=== PATIENT | male | born 1995 | race Caucasian/White ===

== ENCOUNTER 2017-11-07 13:06 | Emergency (ER) | payer OTHER ==
--- NOTE | 2017-11-07 14:06 | EDM.PDOC ---
ED HPI GENERAL MEDICAL PROBLEM - General Chief Complaint: Chemical Exposure Stated Complaint: H2S GAS EXPOSURE/INHALATION Time Seen by Provider: 11/07/17 14:00 Source of Information: Reports: Patient History Limitations: Reports: No Limitations - History of Present Illness INITIAL COMMENTS - FREE TEXT/NARRATIVE: 22-year-old male comes to the ER after being exposed to H2S at his work, [employer]. According to his coworker who brought him in today, the HS2 meter at work read 34 PPM with the lethal limit being 100 PPM at the time of alarm. Patient states the alarm went off at 10 AM and his symptoms began 30-40 minutes after. Symptoms included feeling dizzy, headache, and sharp pain in the arms and fingertips which he rated an 8 out of 10. Currently most of the symptoms have subsided except he still complains of a mild headache, which he says feels like pressure behind the eyes and pain in the temples. He currently has no other complaints. He denies any fever/chills, shortness of breath, difficulty breathing, changes in vision, or changes in cognition. This is the first time he has ever experienced this. He is alert and oriented 3. Headache Pain Score (Numeric/FACES): 8 - Related Data Allergies Allergy/AdvReac Type Severity Reaction Status Date / Time No Known Allergies Allergy Verified 11/07/17 13:28 Home Meds: Home Meds . [No Known Home Meds] 11/07/17 [History] Past Medical History - Past Health History Medical/Surgical History: Denies Medical/Surgical History Social & Family History - Family History Family Medical History: Noncontributory - Tobacco Use Smoking Status *Q: Current Every Day Smoker Years of Tobacco use: 7 Packs/Tins Daily: 1 - Caffeine Use Caffeine Use: Reports: Coffee - Recreational Drug Use Recreational Drug Use: Yes Drug Use in Last 12 Months: No Recreational Drug Type: Reports: Marijuana/Hashish ED ROS GENERAL - Review of Systems Review Of Systems: See Below Constitutional: Reports: No Symptoms. Denies: Fever, Chills HEENT: Reports: No Symptoms. Denies: Eye Discharge, Eye Pain, Vision Change Respiratory: Reports: No Symptoms. Denies: Shortness of Breath, Wheezing, Pleuritic Chest Pain, Cough, Sputum, Hemoptysis Cardiovascular: Reports: No Symptoms. Denies: Chest Pain Endocrine: Reports: No Symptoms GI/Abdominal: Reports: No Symptoms. Denies: Abdominal Pain, Distension, Nausea , Vomiting : Reports: No Symptoms Musculoskeletal: Reports: No Symptoms. Denies: Arm Pain Skin: Reports: No Symptoms Neurological: Reports: Headache (describes as pressure behind the eyes and pain in temples). Denies: Confusion, Dizziness, Numbness, Syncope, Tingling, Trouble Speaking, Difficulty Walking, Weakness, Change in Speech Psychiatric: Reports: No Symptoms ED EXAM, BURN/SMOKE INHALATION - Physical Exam Exam: See Below Exam Limited By: No Limitations General Appearance: Alert, WD/WN, No Apparent Distress Eye Exam: Bilateral Eye: Normal Inspection, PERRL Ears (Abbreviated): Normal External Exam Mouth/Throat: No Symptoms Reported Head: No Symptoms, Atraumatic, Normocephalic Neck: No Symptoms Respiratory: No Respiratory Distress, Lungs Clear, Normal Breath Sounds, No Accessory Muscle Use, Chest Non-Tender. No: Crackles, Rhonchi, Wheezing, Tachypnea Cardiovascular: Normal Peripheral Pulses, Regular Rate, Rhythm, No Murmur GI/Abdominal: Normal Bowel Sounds, Soft, Non-Tender Back Exam: Normal Inspection Extremities: Normal Inspection Neurological: Alert, Oriented, Normal Cognition, Normal Gait, Normal Reflexes, No Motor/Sensory Deficits Psychiatric: Normal Affect, Normal Mood Skin Exam: Warm, Dry, Intact, Normal Color. No: Cyanosis Course - Vital Signs Last Recorded V/S: Last Vital Signs Temp 36.2 C 11/07/17 13:29 Pulse 75 11/07/17 13:29 Resp 18 11/07/17 13:29 BP 140/80 11/07/17 13:29 Pulse Ox 99 11/07/17 13:29 - Orders/Labs/Meds Labs: Laboratory Tests 11/07/17 11/07/17 Range/Units 14:40 14:40 WBC 7.07 (4.23-9.07) K/mm3 RBC 4.91 (4.63-6.08) M/mm3 Hgb 16.0 (13.7-17.5) gm/L Hct 43.5 (40.1-51.0) % MCV 88.6 (79.0-92.2) fl MCH 32.6 H (25.7-32.2) pg MCHC 36.8 H (32.2-35.5) g/dl RDW Std Deviation 39.3 (35.1-43.9) fL Plt Count 268 (163-337) K/mm3 MPV 8.3 L (9.4-12.3) fl Neut % (Auto) 49.3 (34.0-67.9) % Lymph % (Auto) 38.6 (21.8-53.1) % Eaton % (Auto) 10.7 (5.3-12.2) % Eos % (Auto) 1.0 (0.8-7.0) Baso % (Auto) 0.4 (0.1-1.2) % Neut # (Auto) 3.48 (1.78-5.38) K/mm3 Lymph # (Auto) 2.73 (1.32-3.57) K/mm3 Eaton # (Auto) 0.76 (0.30-0.82) K/mm3 Eos # (Auto) 0.07 (0.04-0.54) K/mm3 Baso # (Auto) 0.03 (0.01-0.08) K/mm3 Sodium 141 (136-145) mEq/L Potassium 3.8 (3.5-5.1) mEq/L Chloride 102 (98-107) mEq/L Carbon Dioxide 28 (21-32) mEq/L Anion Gap 14.8 (5-15) BUN 14 (7-18) mg/dL Creatinine 0.9 (0.7-1.3) mg/dL Est Cr Clr Drug Dosing 137.12 mL/min Estimated GFR (MDRD) > 60 (>60) mL/min BUN/Creatinine Ratio 15.6 (14-18) Glucose 82 (74-106) mg/dL Calcium 9.0 (8.5-10.1) mg/dL Total Bilirubin 0.5 (0.2-1.0) mg/dL AST 26 (15-37) U/L ALT 32 (16-63) U/L Alkaline Phosphatase 63 (46-116) U/L Lactate Dehydrogenase 161 (85-227) U/L Total Protein 7.2 (6.4-8.2) g/dl Albumin 4.8 (3.4-5.0) g/dl Globulin 2.4 gm/dL Albumin/Globulin Ratio 2.0 (1-2) Meds: Medications Discontinued Medications Generic Name Dose Route Start Last Admin Trade Name Marcia PRN Reason Stop Dose Admin Ketorolac Tromethamine 60 mg 11/07/17 14:42 11/07/17 14:57 Toradol IM 11/07/17 14:43 60 mg ONETIME ONE Administration - Radiology Interpretation Free Text/Narrative:: Chest: Two views of the chest were obtained. Comparison: No prior chest x-ray. Heart size and mediastinum are normal. Lungs are clear. Bony structures are unremarkable. Impression: 1. Nothing acute is seen on two-view chest x-ray. Diagnostic code #1 - Re-Assessments/Exams Free Text/Narrative Re-Assessment/Exam: Poison control was called, spoke with Shahid who recommended symptomatic support as well as observation for about 1-2 hours as well as getting labs for basic metabolic panel and a lactate. Patient sent for chest x-ray to rule out pulmonary edema which is a possible outcome from H2S exposure. toradol given for headache pain. Discussed lab results and imaging results with the patient and stated that there were no abnormalities seen and that he is good to go home. 11/07/17 15:19 the patient was seen and evaluated by Anya Alonso PA-C. I have seen and evaluated the patient and agree with her history, physical and treatment plan. Departure - Departure Time of Disposition: 15:21 Disposition: Home, Self-Care 01 Condition: Fair Clinical Impression: Exposure to chemical inhalation - Discharge Information Instructions: What You Need to Know About Poisoning, Adult, Chemical Inhalation Injury, Adult Referrals: PCP,None [Primary Care Provider] - Rene Doulgas MD [Physician] - Forms: ED Department Discharge Additional Instructions: Lots of fluids and rest. Proper precautions at work for exposure to H2S in the future. [id number] Tylenol or Motrin for any future headache. Follow-up with occupational health Dr. Douglas is if symptoms persist schedule by calling [phone]. Please return to ER if symptoms change or worsen.
[2017-11-07] MEDS ORDERED: Ketorolac 60 MG/2 ML SDV IM ONE (14:42)
--- NOTE | 2017-11-07 14:58 | CR ---
Chest: Two views of the chest were obtained. Comparison: No prior chest x-ray. Heart size and mediastinum are normal. Lungs are clear. Bony structures are unremarkable. Impression: 1. Nothing acute is seen on two-view chest x-ray. Diagnostic code #1
== END 2017-11-07 15:33 | disposition home or self-care (01) ==
LOC: JD.ED 13:06
DX: T59.6X1A Toxic effect of hydrogen sulfide, accidental (unintentional), initial encounter (principal); R42 Dizziness and giddiness; R51 Headache; F17.210 Nicotine dependence, cigarettes, uncomplicated; Y92.89 Other specified places as the place of occurrence of the external cause; Y99.0 Civilian activity done for income or pay
CPT/HCPCS: 36415; 71046; 80053; 83615; 85025; 96372; 99284; J1885; 99283

== ENCOUNTER 2019-05-13 16:59 | Emergency (ER) | payer OTHER ==
--- NOTE | 2019-05-13 17:40 | EDM.PDOC ---
ED HPI GENERAL MEDICAL PROBLEM - General Chief Complaint: Chest Pain Stated Complaint: CHEST PAIN Time Seen by Provider: 05/13/19 17:30 - History of Present Illness INITIAL COMMENTS - FREE TEXT/NARRATIVE: 24-year-old male presents emergency room with palpitations and an unusually fast heart rate. Patient is an intermittent problems with this in the past but never paid too much attention to it today he bothersome for him. He has had pulse rates as high as 160 he felt at work today usually it isn't this high what was at high he had some chest discomfort associated with it. The patient works out on a fairly regular basis and has not had problems like this is working out. The patient denies any recent illicit drug use. Mid-Sternal Chest Pain Score (Numeric/FACES): 5 - Related Data Allergies Allergy/AdvReac Type Severity Reaction Status Date / Time No Known Allergies Allergy Verified 05/13/19 17:13 Home Meds: Home Meds . [No Known Home Meds] 11/07/17 [History] Past Medical History - Past Health History Medical/Surgical History: Denies Medical/Surgical History Social & Family History - Family History Family Medical History: Noncontributory - Tobacco Use Smoking Status *Q: Current Every Day Smoker Years of Tobacco use: 10 Packs/Tins Daily: 1.5 - Caffeine Use Caffeine Use: Reports: Coffee - Recreational Drug Use Recreational Drug Use: Yes Drug Use in Last 12 Months: Yes Recreational Drug Type: Reports: Cocaine, Marijuana/Hashish Recreational Drug Use Frequency: Rarely ED ROS GENERAL - Review of Systems Review Of Systems: See Below Constitutional: Reports: No Symptoms HEENT: Reports: No Symptoms Respiratory: Reports: No Symptoms Cardiovascular: Reports: Palpitations Endocrine: Reports: No Symptoms GI/Abdominal: Reports: No Symptoms : Reports: No Symptoms Musculoskeletal: Reports: No Symptoms Skin: Reports: No Symptoms Neurological: Reports: No Symptoms Psychiatric: Reports: Anxiety ED EXAM, GENERAL - Physical Exam Exam: See Below Exam Limited By: No Limitations General Appearance: Alert, No Apparent Distress, Other (Just watch no on the monitor he appears to be in a sinus tachycardia of about 110 and then drop into the 90s and then go back up into the 1 teens. At the time I exam he actually went from 110 into the 70s and stayed there for a while P-wave morphology is the same during all this) Head: Atraumatic, Normocephalic Neck: Normal Inspection, Supple, Non-Tender, Full Range of Motion. No: Lymphadenopathy (L), Lymphadenopathy (R) Respiratory/Chest: No Respiratory Distress, Lungs Clear, Normal Breath Sounds Cardiovascular: Regular Rate, Rhythm, No Edema, No Murmur, Other (His pulse slowed by the time I listened to him.) GI/Abdominal: Normal Bowel Sounds, Soft, Non-Tender Back Exam: Normal Inspection. No: CVA Tenderness (L), CVA Tenderness (R) Extremities: Normal Inspection, Non-Tender, No Pedal Edema Course - Vital Signs Last Recorded V/S: Last Vital Signs Temp 36.3 C 05/13/19 17:10 Pulse 81 05/13/19 17:10 Resp 21 H 05/13/19 17:10 BP 152/87 H 05/13/19 17:10 Pulse Ox 100 05/13/19 17:10 - Orders/Labs/Meds Orders: Active Orders 24 hr Category Date Time Status EKG Documentation Completion [RC] STAT Care 05/13/19 17:45 Active Holter Monitor 24 Hours [RC] .PRN Care 05/13/19 19:10 Ordered Labs: Laboratory Tests 05/13/19 Range/Units 18:03 Sodium 144 (136-145) mEq/L Potassium 3.9 (3.5-5.1) mEq/L Chloride 104 (98-107) mEq/L Carbon Dioxide 30 (21-32) mEq/L Anion Gap 13.9 (5-15) BUN 14 (7-18) mg/dL Creatinine 1.4 H (0.7-1.3) mg/dL Est Cr Clr Drug Dosing 84.01 mL/min Estimated GFR (MDRD) > 60 (>60) mL/min BUN/Creatinine Ratio 10.0 L (14-18) Glucose 82 (74-106) mg/dL Calcium 9.1 (8.5-10.1) mg/dL Magnesium 1.8 (1.8-2.4) mg/dl TSH 3rd Generation 2.437 (0.358-3.74) uIU/mL - Re-Assessments/Exams Free Text/Narrative Re-Assessment/Exam: 05/13/19 19:11 Labs really nondiagnostic for his tachydysrhythmia. However the creatinines up a little at 1.4 I discussed this with the patient and have advised him to push fluids he denies taking any workout supplements. Will get a Holter monitor on the patient the patient needs to establish with her regular provider will be for him to the Hospital clinic here. He did review his telemetry rhythm strips here in the emergency room and his rate is as low as in the 60s at times and up to about 110 P wave morphology stays fairly constant. Departure - Departure Time of Disposition: 19:12 Disposition: Home, Self-Care 01 Clinical Impression: Tachyarrhythmia Referrals: PCP,None [Primary Care Provider] - Forms: ED Department Discharge Additional Instructions: Return to the emergency room with any questions problems worsening symptoms. Return the Holter monitor as directed. Follow-up in the Hospital clinic at the end of this week call tomorrow morning for an appointment [phone]. - My Orders Last 24 Hours: My Active Orders 05/13/19 17:45 EKG Documentation Completion [RC] STAT 05/13/19 19:10 Holter Monitor 24 Hours [RC] .PRN - Assessment/Plan Last 24 Hours: My Active Orders 05/13/19 17:45 EKG Documentation Completion [RC] STAT 05/13/19 19:10 Holter Monitor 24 Hours [RC] .PRN
== END 2019-05-13 19:33 | disposition home or self-care (01) ==
LOC: JD.ED 16:59
DX: R00.0 Tachycardia, unspecified (principal); F17.210 Nicotine dependence, cigarettes, uncomplicated
CPT/HCPCS: 36415; 80048; 83735; 84443; 93005; 93010; 99283; 99285-25